=== PATIENT | female | born 2000 | race Hispanic/Latino ===

== ENCOUNTER 2023-03-20 10:58 | Emergency (ER) | payer MEDICAID, OTHER ==
[~2023-03-20] VITALS: Ht 152.4 cm; Wt 64.9 kg
[2023-03-20] MEDS ORDERED: LIDOCAINE HCL 1% 20 ML VIAL INJ SCH (12:00)
[2023-03-20] MEDS ORDERED: CEPH500B PO (13:43)
[2023-03-20] MEDS ORDERED: IBUP-2070 PO (13:43)
[2023-03-20 15:02] VITALS: BP 122/67; PULSE 87; RESP 16; O2SAT 100
== END 2023-03-20 15:05 | disposition home or self-care (01) ==
LOC: EDH 10:58
DX: L02.411 Cutaneous abscess of right axilla (principal); Z79.899 Other long term (current) drug therapy
CPT/HCPCS: 10060